=== PATIENT | female | born 1950 | race Caucasian/White ===

== ENCOUNTER 2019-12-24 20:59 | Emergency (ER) | payer MEDICARE ==
[~2019-12-24] VITALS: Ht 167.6 cm; Wt 75.0 kg
[~2019-12-24 20:59] MED LIST: ASPI81TA45 PO; DARI7.5T3 PO; LEVO88TA4 PO; NAPR220C62 PO; SIMV40TA20 PO; prevagin PO
[2019-12-24] MEDS ORDERED: TRAMADOL (21:09)
[2019-12-24] MEDS ORDERED: ESCITALOPRAM (21:09)
[2019-12-24] MEDS ORDERED: BUPROPION (21:09)
[2019-12-24] MEDS ORDERED: SODIUM CHLORIDE FLUSH 10ML SYR IVF ONE (21:30)
[2019-12-24] MEDS ORDERED: ONDANSETRON 2MG/ML, 2ML IVPush ONE (21:30)
[2019-12-24] MEDS ORDERED: SODIUM CHLORIDE 0.9% 1,000ML IVBOLUS ONE (21:30)
[2019-12-24] MEDS ORDERED: ONDANSETRON 2MG/ML, 2ML ONE (21:32)
--- NOTE | 2019-12-24 21:34 | NUR ---
PT BIB BY EMS FOR "WEAKNESS AND A COUGH". PT STATES SHE HAS HAD A COUGH FOR 20 YEARS AND IS A "SMOKERS COUGH". PT ALSO SAY SHE FEELS "UNSTEADY ON HER LEGS". PT LIVES WITH WHO HAS BEEN HAVING FLU LIKE SYMPTOMS. PT WAS GIVEN 4MG ZOFRAN EN ROUTE. EKG HAS BEEN COMPLETED. PT IS CONNECTED TO MONITORING EQUIPMENT
--- NOTE | 2019-12-24 21:49 | NUR ---
REPORT FROM GUICHO BUSTAMANTE. PT SITTING UP IN [facility], NAD NOTED. PT ASSISTED TO BEDSIDE COMMODE, PT STABLE ON FEET THOUGH TREMULOUS. REPORTS APPROX ONE MONTH GENERALIZED WEAKNESS. DENIES N/V/D/PRODUCTIVE COUGH/CP/FEVER/URINARY S/S. IS A PATIENT IN ED WITH SIMILAR S/S. UA COLLECTED. BP/SPO2/ECG MONITORING IN PLACE. VS WNL. IVF HUNG. PT DENIES NAUSEA AT THIS TIME, YARIEL BORRERO.
--- NOTE | 2019-12-24 22:04 | NUR ---
UA COLLECTED AND SENT
[2019-12-24 22:14] LABS: MICROSCOPIC INDICATED
[2019-12-24 22:15] LABS: CULTURE INDICATED? YES
[2019-12-24 22:23] LABS: BASOPHILS # (AUTO) 0.09 x10^3/uL (0-0.1); BASOPHILS % (AUTO) 1 % (0-1); EOSINOPHILS # (AUTO) 0.15 x10^3/uL (0-0.4); EOSINOPHILS % (AUTO) 1 % (1-7); LYMPHOCYTES % (AUTO) 10 % (22-44); MD NO; MEAN CORPUSCULAR HEMOGLOBIN 32.2 pg (27.0-34.8); MEAN CORPUSCULAR HGB CONC 33.1 g/dL (32.4-35.8); MEAN CORPUSCULAR VOLUME 97.4 fL (80-100); MEAN PLATELET VOLUME 8.4 fL (7.4-10.4); MONOCYTES % (AUTO) 6 % (2-9); NEUTROPHILS # (AUTO) 10.11 x10^3/uL (1.8-6.8); NEUTROPHILS % (AUTO) 83 % (42-75); PLATELET COUNT 230 x10^3/uL (130-400); RED BLOOD COUNT 4.22 x10^6/uL (3.82-5.3); RED CELL DISTRIBUTION WIDTH 13.3 % (9.6-15.2)
[2019-12-24 22:25] LABS: ALBUMIN 3.7 g/dL (3.4-5.0); ANION GAP 7 mmol/L (5-15); CALCIUM 8.7 mg/dL (8.5-10.1); CHLORIDE 109 mmol/L (98-107)
[2019-12-24 22:32] LABS: ALANINE AMINOTRANSFERASE 21 U/L (12-78); ALKALINE PHOSPHATASE 82 U/L (45-117); BILIRUBIN,TOTAL 0.8 mg/dL (0.2-1.0); CREATININE 0.93 mg/dL (0.55-1.02); T4 (THYROXINE) 14.4 mcg/dL (4.8-13.9); TOTAL PROTEIN 6.9 g/dL (6.4-8.2); TROPONIN I < 0.015 ng/mL (0.000-0.045)
[2019-12-24 22:45] VITALS: BP 160/80
--- NOTE | 2019-12-24 23:36 | NUR ---
POC IS DC. IV DC'D AND PT UP TO DRESS SELF.
--- NOTE | 2019-12-24 23:44 | NUR ---
DC EDUCATION PROVIDED, PT DEMONSTRATES UNDERSTANDING. PT AMBULATED STEADILY TO DC. PT TO AWAIT [facility] IN LOBBY. [facility] CALLED ON PATIENT'S BEHALF
== END 2019-12-24 23:46 | disposition home or self-care (01) ==
LOC: ED 21:25
DX: E05.90 Thyrotoxicosis, unspecified without thyrotoxic crisis or storm (principal); R53.1 Weakness; R11.2 Nausea with vomiting, unspecified; R94.31 Abnormal electrocardiogram [ECG] [EKG]; E78.00 Pure hypercholesterolemia, unspecified; F17.200 Nicotine dependence, unspecified, uncomplicated
CPT/HCPCS: 36415; 80053; 81001; 83735; 84436; 84443; 84484; 85025; 87086; 93005; 96360; 99284; J7030